=== PATIENT | male | born 1950 | race Caucasian/White ===

== ENCOUNTER 2023-12-07 17:19 | Emergency (ER) | payer MEDICARE, OTHER, SELFPAY ==
[2023-12-07 17:20] VITALS: BP 175/107
[2023-12-07 17:58] LABS: % Basophils 0.3 % (0-2); % Eosinophils 1.5 % (0-6); % Lymphocytes 22.7 % (20.5-51.1); % Monocytes 11.9 % (1.7-9.3); % Neutrophils 63.6 % (42.2-75.2); Absolute Eosinophils 0.1 10^3/uL (0-0.7); Absolute Lymphocytes 0.9 10^3/uL (1.2-3.4); Absolute Monocytes 0.5 10^3/uL (0.1-0.6); Absolute Neutrophils 2.5 10^3/uL (1.4-6.5); Hematocrit 45.5 % (39.0-52.0); Hemoglobin 15.8 g/dL (13.0-18.0); Mean Corp Hgb Conc. 34.7 g/dL (33.0-37.0); Mean Corpuscular Hgb 31.3 pg (27.0-31.0); Mean Corpuscular Volume 90.3 fL (80.0-94.0); Mean Platelet Volume 9.4 fL (7.4-10.4); Nucleated Red Blood Cells % 0 % (-); Platelet Count 204 10^3/uL (130-400); Red Blood Cell Count 5.04 10^6/uL (4.70-6.10); Red Cell Dist. Width 12.4 % (11.5-14.5)
[2023-12-07 18:15] LABS: ALT (SGPT) 12 U/L (0-50); AST (SGOT) 26 U/L (17-59); Alkaline Phosphatase 95 U/L (38-126); Blood Urea Nitrogen 21 mg/dl (9-20); Calcium 9.2 mg/dl (8.4-10.2); Carbon Dioxide 32 mmol/L (22-30); Chloride 100 mmol/L (98-107); Glucose 97 mg/dl (70-99); Potassium 4.2 mmol/L (3.5-5.1); Sodium 139 mmol/L (135-145); Total Bilirubin 0.8 mg/dl (0.2-1.3); Total Protein 6.7 g/dl (6.3-8.2); eGFR > 60.00
[2023-12-07 18:17] LABS: COVID-19 Antigen Negative (Negative)
--- NOTE | 2023-12-07 19:16 | ED.GENMED ---
History of Present Illness
General
Chief Complaint: Fatigue
Source: patient
Exam Limitations: none
Time Seen by Provider: 12/07/23 19:01
Travel History
Have you had any contact with someone who has COVID-19?: No
Do you have any symptoms of coronavirus? Fever > 100 degrees, chills, cough, shortness of breath, sore throat, loss of taste or smell, muscle aches, or headache?: No
History of Present Illness
History of Present Illness:
See MDM
Past History
Past History
ED Past Medical History: COPD and Other (COPD, sleep apnea)
Social History
Tobacco: Non-smoker
Alcohol: Occasional
Family History
Family History: CAD and Other (COPD)
Phy Exam
Physical Exam
Physical Exam:
See MDM
Course
Orders/Labs/Results
Orders:
Orders
12/07/23 17:28
Electrocardiogram (*1) Urgent
Reason for Study: Fatigue / Weakness
EKG- Treatment ONCE
12/07/23 17:38
COVID-19 Antigen Urgent
Source: Nasal Swab
Complete Blood Count/With Diff Urgent
Comprehensive Metabolic Panel Urgent
Influenza A+B Rapid Molecular Urgent
MARINO Source: Nasal Swab
Specimen Description:
12/07/23 19:15
Dexamethasone Pf [Decadron] 10 mg PO NOW STA
Ipratropium/Albuterol Sulfate [Duoneb] 3 ml INH R NOW ONE
CR Chest - 2 Views Urgent
Comment:
Reason For Exam: Cough, wheesing, COPD, Flu
12/07/23 19:16
Amlodipine [Norvasc] 5 mg PO ONCE ONE
Abnormal Lab Results
12/07/23
17:38
WBC 4.0 L 10^3/uL
(4.8-10.8)
MCH 31.3 H pg
(27.0-31.0)
Absolute Lymphs (auto) 0.9 L 10^3/uL
(1.2-3.4)
Monocytes % 11.9 H %
(1.7-9.3)
Carbon Dioxide 32 H mmol/L
(22-30)
BUN 21 H mg/dl
(9-20)
12/07/23 17:38
12/07/23 17:38
Vital Signs
Initial and Last Documented VS:
Initial Vital Signs
Temp Pulse Resp BP Pulse Ox
98 F 55 18 175/107 96
12/07/23 17:20 12/07/23 17:20 12/07/23 17:20 12/07/23 17:20 12/07/23 17:20
Last Documented Vital Signs
Temp Pulse Resp BP Pulse Ox
98 F 116 18 148/92 93
12/07/23 17:20 12/07/23 19:40 12/07/23 17:20 12/07/23 21:31 12/07/23 21:32
MDM/Problems Addressed
Differential Diagnosis Includes:
HPI and MDM Narrative:
73-year-old male presenting with cough, shortness of breath and feeling unwell. This occurred after returning from a cruise several days ago. His staffing operations manager prescribed Z-Masoud. He finished a Z-Masoud but symptoms persist. He denies chest pain. He
has COPD that is well-controlled with Breo
On exam, he is sitting in bed comfortably. However, he has significant amount of expiratory wheezing. Will give DuoNeb and Decadron. Will obtain chest x-ray. We discussed positive influenza. He is out of the Tamiflu window
Patient also complains of left ear pain. On exam, he has a cerumen impaction. Discussed Debrox
Patient also concerned that his blood pressure has been elevated. He states his primary care doctor has contemplated putting him on antihypertensives. Will write for amlodipine to be taken if blood pressure at home is greater than 160/90 but
discussed having this followed with his PCP
Physical exam
General: Well appearing and non-toxic
HEENT: protecting airway. Left cerumen impaction
Neck: appears supple
CV: No evidence of cyanosis. Regular rate and rhythm
Resp: No accessory muscle use. Expiratory wheezing throughout
Abd: Non-distended
Extremities: No deformities. No leg edema
Neuro: alert
Psych: Normal affect
Skin: Intact
Problems Addressed including Acute and Chronic Conditions affecting care:
1. Influenza
Acuity: acute
Prognosis: stable
Details: Patient and out of the Tamiflu window
2. COPD exacerbation
Acuity: acute
Prognosis: stable
Details: Will give DuoNeb and start Decadron. Discussed starting the Medrol Dosepak that is staffing operations manager has written
3. Hypertension
Acuity: acute
Prognosis: unstable
Details: Will start amlodipine
Updates
On reassessment, patient feeling better. Chest x-ray negative for infection
Differential Diagnosis (but not limited to): Viral syndrome, pneumonia, COPD exacerbation, influenza
Testing considered: Troponin but screening EKG nonischemic
Drug therapy (if applicable): OTC meds, please see d/c instruction regarding Rx drugs
Amount and/or Complexity of Data Reviewed
Clinical info obtained from: Patient
External data reviewed: N/A
Labs I independently reviewed (but not limited to): Influenza positive
Radiology: N/A
Pulse Ox: not hypoxic
EKG independently reviewed: Sinus bradycardia, normal axis, no STEMI
Seal Mixing Operator: N/A
Critical Care: N/A
Risk of Complication:
Social Determinants of health: Good social support
Discussed with other providers: N/A
Escalation of Care includes Admit/Obs: After being observed in the Emergency Department, pt stable for discharge.
Occasional wrong word or 'sound a like' substitutions may have occurred due to the inherent limitations of voice recognition software. Read the chart carefully and recognize, using context, where substitutions have occurred.
*Critical Care Note
Total Time (30-74mins, 75-104mins- exclusive of procedures): Not Applicable
ED Attending Note
-
Portions of this chart may have been created with voice recognition software.� Occasional wrong word or��sound alike� substitutions may have occurred due to the inherent limitations of voice recognition software.
Discharge Plan
Departure
Patient Disposition: Home (Routine Discharge)
Date of Disposition: 12/07/23
Time of Disposition: 21:54
Patient with high blood pressure during this ER visit?: Yes
Discharge Problem:
Acute exacerbation of chronic obstructive pulmonary disease, Influenza A, Cerumen impaction, Benign essential HTN
Instructions: Chronic obstructive pulmonary disease (COPD)
Prescriptions:
New
prednisone 10 mg tablet
See Rx Instructions .ROUTE .COMPLEX Qty: 45 0RF
Rx Instructions:
5 tabs day 1-3, 4 tabs day 4-6, 3 tabs day 7-9, 2 tabs day 10-12, 1 tab day 13-15
amlodipine 5 mg tablet
5 mg PO DAILY Qty: 14 0RF
No Action
multivitamin 1 EACH tablet
1 ea PO HS
famciclovir 500 MG tablet
1,500 mg PO DAILYPRN PRN (Reason: COLD SORE)
lansoprazole 30 MG capsule,delayed release(DR/EC)
30 mg PO HS
fluoxetine 10 MG capsule
10 mg PO HS
zinc 50 MG tablet
50 mg PO HS
azelastine 1 SPRAY aerosol,spray
2 spray intranasal HS
albuterol sulfate 1 PUFF HFA aerosol inhaler
1 puff inhalation R Q6HPRN PRN (Reason: SHORT OF BREATH)
fluticasone propionate 1 SPRAY spray,suspension
2 spray intranasal HS
finasteride 5 MG tablet
5 mg PO HS
cholecalciferol (vitamin D3) [Vitamin D3] 25 MCG capsule
50 mcg PO HS
docosahexaenoic acid-epa 1 CAP capsule
1 cap PO HS
fluticasone furoate-vilanterol [Breo Ellipta] 1 EACH blister with device
1 ea inhalation R DAILY
red yeast rice 600 mg Tablet
1,200 mg PO QPM
guaifenesin [Mucinex] 600 mg Tablet Extended Release 12hr
600 mg PO BIDPRN PRN (Reason: cough)
ICaps AREDS2 250 mg-200 unit -12.5 mg-1 mg Capsule
1 cap PO BID
ibuprofen [Advil] 200 mg Tablet
200 mg PO BIDPRN PRN (Reason: mild pain)
Activity Restrictions/Additional Instructions:
Please return for any worsening symptoms.
You may return at any time if you have further concerns.
Please follow up with your doctor at the first available appointment, preferably this week.
Please start taking the amlodipine daily if your blood pressure is greater than 160/90. This should be further evaluated by her primary care whether or not this should be continued or switch to a different medicine.
Please start the steroid pack tomorrow.
Please use the Debrox earwax solution in your left ear for the next several days.
Thank you for choosing [facility].
Interventions
Interventions:
*Risk Screen - Suicide Last Done: 12/07/23 17:20
*General Assessment Last Done: 12/07/23 17:20
*Neglect/Abuse Screening Last Done: 12/07/23 17:20
ED- Fall Risk Assessment Last Done: 12/07/23 19:45
*ED COVID-19 Vaccine History Last Done: 12/07/23 19:45
[2023-12-07 19:39] VITALS: BP 172/100
[2023-12-07] MEDS: NORVASC 5 MG PO (19:40)
[2023-12-07] MEDS: DECADRON 10 MG PO (19:40)
[2023-12-07] MEDS: DUONEB 3 ML INH (19:40)
[2023-12-07 19:45] VITALS: BMI 27.7
[2023-12-07 20:00] VITALS: BP 172/99
[2023-12-07 21:31] VITALS: BP 148/92
[2023-12-07 22:00] VITALS: BP 146/90
== END 2023-12-07 22:09 | disposition home or self-care (01) ==
LOC: EMR 17:19
PROVIDERS: Emergency Medicine; EMERGENCY PHYSICIAN Student in an Organized Health Care Education/Training Program; FAMILY PHYSICIAN Nurse Practitioner Adult Health
DX: J44.1 Chronic obstructive pulmonary disease with (acute) exacerbation (principal); I10 Essential (primary) hypertension; H61.22 Impacted cerumen, left ear; Z11.52 Encounter for screening for COVID-19; J10.1 Influenza due to other identified influenza virus with other respiratory manifestations; G47.30 Sleep apnea, unspecified
CPT/HCPCS: 99283; 94640; 71046; 80053; 85025; 87502; 87811; 93005

== ENCOUNTER → 2024-08-31 10:01 | Outpatient (REF) | payer MEDICARE, OTHER, SELFPAY ==
[2024-08-31 11:01] LABS: % Basophils 0.5 % (0-2); % Eosinophils 2.3 % (0-6); % Lymphocytes 17.6 % (20.5-51.1); % Monocytes 11.8 % (1.7-9.3); % Neutrophils 67.8 % (42.2-75.2); Absolute Eosinophils 0.1 10^3/uL (0-0.7); Absolute Lymphocytes 0.8 10^3/uL (1.2-3.4); Absolute Monocytes 0.5 10^3/uL (0.1-0.6); Absolute Neutrophils 2.9 10^3/uL (1.4-6.5); Hematocrit 45.1 % (39.0-52.0); Hemoglobin 15.6 g/dL (13.0-18.0); Mean Corp Hgb Conc. 34.6 g/dL (33.0-37.0); Mean Corpuscular Hgb 31.5 pg (27.0-31.0); Mean Corpuscular Volume 90.9 fL (80.0-94.0); Mean Platelet Volume 9.8 fL (7.4-10.4); Nucleated Red Blood Cells % 0 % (-); Platelet Count 211 10^3/uL (130-400); Red Blood Cell Count 4.96 10^6/uL (4.70-6.10); Red Cell Dist. Width 12.6 % (11.5-14.5); White Blood Cell Count 4.3 10^3/uL (4.8-10.8)
[2024-08-31 11:34] LABS: ALT (SGPT) 13 U/L (0-50); AST (SGOT) 26 U/L (17-59); Albumin 4.2 g/dl (3.5-5.0); Alkaline Phosphatase 104 U/L (38-126); Blood Urea Nitrogen 26 mg/dl (9-20); Calcium 9.3 mg/dl (8.4-10.2); Carbon Dioxide 31 mmol/L (22-30); Chloride 105 mmol/L (98-107); Glucose 92 mg/dl (70-99); HDL Cholesterol 55 mg/dl; LDL Cholesterol, Calculated 106 mg/dl; Potassium 4.5 mmol/L (3.5-5.1); Sodium 145 mmol/L (135-145); Total Bilirubin 0.5 mg/dl (0.2-1.3); Total Cholesterol 173 mg/dl (50-199); Total Protein 6.7 g/dl (6.3-8.2); Triglyceride 60 mg/dl (10-149); Very Low Density Lipoprotein 12 mg/dl (0-30); eGFR > 60.00
[2024-08-31 12:02] LABS: PSA, Total - Screen 0.17 ng/ml (0.0-4.0)
[2024-08-31 12:44] LABS: Glycohemoglobin (HgbA1c) 5.4 % (4.0-5.6)
== END ==
LOC: REG 10:01
PROVIDERS: ATTENDING PHYSICIAN Nurse Practitioner Adult Health
DX: R73.01 Impaired fasting glucose (principal); Z00.00 Encounter for general adult medical examination without abnormal findings; E78.5 Hyperlipidemia, unspecified; Z12.5 Encounter for screening for malignant neoplasm of prostate
CPT/HCPCS: 36415; 80053; 80061; 83036; 85025; G0103

== ENCOUNTER 2024-12-12 11:09 | Outpatient (RCR) | payer MEDICARE, OTHER, SELFPAY | END 2024-12-12 23:59 | disposition home or self-care (01) | LOC: RPT 11:09 | PROVIDERS: ATTENDING PHYSICIAN Specialist; FAMILY PHYSICIAN Internal Medicine | DX: M75.42 Impingement syndrome of left shoulder (principal); M75.32 Calcific tendinitis of left shoulder; Z73.6 Limitation of activities due to disability | CPT/HCPCS: 97010; 97110; 97140; 97162 ==

== ENCOUNTER → 2024-12-27 19:34 | Outpatient (REF) | payer MEDICARE, OTHER, SELFPAY | LOC: MRI 19:34 | PROVIDERS: ATTENDING PHYSICIAN Specialist; FAMILY PHYSICIAN Nurse Practitioner Adult Health | DX: M25.512 Pain in left shoulder (principal) | CPT/HCPCS: 73221 ==

== ENCOUNTER 2024-12-29 13:00 | Outpatient (RCR) | payer MEDICARE, OTHER, SELFPAY | END 2024-12-29 23:59 | disposition home or self-care (01) | LOC: RPT 13:00 | PROVIDERS: ATTENDING PHYSICIAN Specialist; FAMILY PHYSICIAN Internal Medicine | DX: M75.42 Impingement syndrome of left shoulder (principal); M75.32 Calcific tendinitis of left shoulder; Z73.6 Limitation of activities due to disability | CPT/HCPCS: 97010; 97110; 97140 ==

== ENCOUNTER 2025-02-07 11:59 | Outpatient (RCR) | payer MEDICARE, OTHER, SELFPAY | END 2025-02-07 23:59 | disposition home or self-care (01) | LOC: RPT 11:59 | PROVIDERS: ATTENDING PHYSICIAN Specialist; FAMILY PHYSICIAN Internal Medicine | DX: M75.42 Impingement syndrome of left shoulder (principal); M75.32 Calcific tendinitis of left shoulder; Z73.6 Limitation of activities due to disability; M62.81 Muscle weakness (generalized) | CPT/HCPCS: 97010; 97110; 97112 ==

== ENCOUNTER → 2025-03-27 15:19 | Outpatient (REF) | payer MEDICARE, OTHER, SELFPAY | LOC: RAD 15:19 | PROVIDERS: ATTENDING PHYSICIAN Nurse Practitioner Adult Health | DX: J18.9 Pneumonia, unspecified organism (principal) | CPT/HCPCS: 71046 ==

== ENCOUNTER 2025-04-03 11:05 | Outpatient (RCR) | payer MEDICARE, OTHER, SELFPAY | END 2025-04-03 23:59 | disposition home or self-care (01) | LOC: ROT 11:05 | PROVIDERS: ATTENDING PHYSICIAN Orthopaedic Surgery Hand Surgery; FAMILY PHYSICIAN Internal Medicine | DX: M19.032 Primary osteoarthritis, left wrist (principal); Z73.6 Limitation of activities due to disability; M25.532 Pain in left wrist | CPT/HCPCS: 97010; 97110; 97166; 97535 ==

== ENCOUNTER → 2025-06-19 11:02 | Outpatient (REF) | payer MEDICARE, OTHER, SELFPAY ==
[2025-06-19 12:13] LABS: Hematocrit 43.5 % (39.0-52.0); Hemoglobin 14.7 g/dL (13.0-18.0); Mean Corp Hgb Conc. 33.8 g/dL (33.0-37.0); Mean Corpuscular Volume 91.2 fL (80.0-94.0); Platelet Count 200 10^3/uL (130-400); Red Cell Dist. Width 12.0 % (11.5-14.5)
[2025-06-19 13:38] LABS: ALT (SGPT) < 10 U/L (0-50); AST (SGOT) 18 U/L (17-59); Albumin 4.1 g/dl (3.5-5.0); Alkaline Phosphatase 96 U/L (38-126); Blood Urea Nitrogen 22 mg/dl (9-20); Calcium 9.2 mg/dl (8.4-10.2); Carbon Dioxide 28 mmol/L (22-30); Chloride 108 mmol/L (98-107); Glucose 126 mg/dl (70-99); Potassium 4.1 mmol/L (3.5-5.1); Sodium 142 mmol/L (135-145); Total Protein 6.4 g/dl (6.3-8.2); eGFR > 60.00
== END ==
LOC: REG 11:02
PROVIDERS: ATTENDING PHYSICIAN Internal Medicine Gastroenterology; FAMILY PHYSICIAN Nurse Practitioner Adult Health
DX: R19.4 Change in bowel habit (principal)
CPT/HCPCS: 36415; 80053; 85027

== ENCOUNTER → 2025-06-22 14:34 | Outpatient (REF) | payer MEDICARE, OTHER, SELFPAY | LOC: REG 14:34 | PROVIDERS: ATTENDING PHYSICIAN Internal Medicine Gastroenterology; FAMILY PHYSICIAN Nurse Practitioner Adult Health | DX: R19.4 Change in bowel habit (principal) | CPT/HCPCS: 82653; 83993; 87045; 87046; 87324; 87328; 87329; 87427; 87449 ==

== ENCOUNTER 2025-07-23 06:23 | Day surgery (SDC) | payer MEDICARE, OTHER, SELFPAY | END 2025-07-23 09:18 | disposition home or self-care (01) | LOC: GI 06:23 | PROVIDERS: ATTENDING PHYSICIAN Internal Medicine Gastroenterology; FAMILY PHYSICIAN Nurse Practitioner Adult Health | DX: Z12.11 Encounter for screening for malignant neoplasm of colon (principal); D12.2 Benign neoplasm of ascending colon; D12.4 Benign neoplasm of descending colon; D12.5 Benign neoplasm of sigmoid colon; K57.30 Diverticulosis of large intestine without perforation or abscess without bleeding; K64.8 Other hemorrhoids; R19.4 Change in bowel habit; Z86.0100 Personal history of colon polyps, unspecified | CPT/HCPCS: 45385; 45380; 88305 ==

== ENCOUNTER → 2025-07-30 13:47 | Outpatient (REF) | payer MEDICARE, OTHER, SELFPAY | LOC: RCS 13:47 | PROVIDERS: ATTENDING PHYSICIAN Internal Medicine Cardiovascular Disease; FAMILY PHYSICIAN Nurse Practitioner Adult Health | DX: E78.5 Hyperlipidemia, unspecified (principal); R06.02 Shortness of breath | CPT/HCPCS: 93017 ==

== ENCOUNTER → 2025-09-21 11:54 | Outpatient (REF) | payer MEDICARE, OTHER, SELFPAY ==
[2025-09-21 13:32] LABS: Magnesium 2.3 mg/dl (1.6-2.3)
[2025-09-21 13:54] LABS: Vitamin D, 25-OH*** 73.4 ng/mL (30-80)
[2025-09-24 02:06] LABS: Calprotectin, Fecal 102 ug/g (<=49)
== END ==
LOC: REG 11:54
PROVIDERS: ATTENDING PHYSICIAN Nurse Practitioner Adult Health
DX: E55.9 Vitamin D deficiency, unspecified (principal); Z79.899 Other long term (current) drug therapy; R19.4 Change in bowel habit
CPT/HCPCS: 36415; 82306; 83735; 83993

== ENCOUNTER → 2025-09-25 11:08 | Outpatient (REF) | payer MEDICARE, OTHER, SELFPAY ==
[2025-09-25 13:22] LABS: PSA, Total - Diagnostic 0.22 ng/ml (0.0-4.0)
== END ==
LOC: REG 11:08
PROVIDERS: ATTENDING PHYSICIAN Specialist; FAMILY PHYSICIAN Nurse Practitioner Adult Health
DX: N40.1 Benign prostatic hyperplasia with lower urinary tract symptoms (principal)
CPT/HCPCS: 36415; 84153

== ENCOUNTER → 2025-10-02 12:37 | Outpatient (REF) | payer MEDICARE, OTHER, SELFPAY | LOC: PAVMRI 12:37 | PROVIDERS: ATTENDING PHYSICIAN Orthopaedic Surgery Hand Surgery; FAMILY PHYSICIAN Nurse Practitioner Adult Health | DX: M25.532 Pain in left wrist (principal) | CPT/HCPCS: 73221 ==